=== PATIENT | female | born 1965 | race Caucasian/White ===

== ENCOUNTER 2022-05-17 12:36 | Emergency (ER) | payer BC, SELFPAY ==
--- NOTE | 2022-05-17 12:36 | ECG_ITS ---
APPROVED REPORT Exam: Resting ECG HR:102 bpm ECG Measurements Heart Rate 102 AXES MO 132 P 68 QRSd 86 QRS 68 QT 362 T 64 QTc 420 Conclusion SINUS TACHYCARDIA POSSIBLE RIGHT ATRIAL ENLARGEMENT [0.25mV P-WAVE] ST DEVIATION AND MODERATE T-WAVE ABNORMALITY, CONSIDER ANTERIOR ISCHEMIA [-0.1+ mV T-WAVE IN V3/V4] ABNORMAL ECG UNCONFIRMED REPORT Electronically signed by : Aguilar Lorenzo MD 05/17/2022 21:39:46
[2022-05-17 12:39] VITALS: BP 137/69; PULSE 89; RESP 19; TEMP 36.9; O2SAT 99; BMI 25.8
[2022-05-17 12:55] VITALS: PULSE 89
--- NOTE | 2022-05-17 12:57 | XR_ITS ---
FINAL REPORT CLINICAL HISTORY: Chest Pain FINDINGS: PA and lateral views of the chest are obtained. There is no prior exam for comparison. The cardiac and mediastinal silhouettes are within normal limits. The lungs are clear. There is no pleural effusion, pneumothorax, or acute osseous abnormality. IMPRESSION: No radiographic evidence of acute cardiac or pulmonary disease. Reviewed, Interpreted and Dictated by Allyssa Colindres MD Transcribed by Gregor Boyd Authenticated and [facility]
[2022-05-17 13:00] VITALS: BP 136/77; PULSE 96; RESP 20; O2SAT 95
[2022-05-17 13:11] LABS: Chloride 102 mmol/L (98-107); Potassium 3.9 mmoL/L (3.5-5.1); Sodium 139 mmol/L (136-145)
[2022-05-17 13:12] LABS: Basophils # 0.1 K/mm3 (0-0.2); Basophils % 1.1 % (0.1-2.0); Eosinophils # 0.1 K/mm3 (0.0-0.4); Hematocrit 43.6 % (37.0-47.0); Hemoglobin 14.3 g/dL (12.2-16.2); Lymphocytes # 1.2 K/mm3 (0.7-4.5); Lymphocytes % 17.9 % (10-50); Mean Corpuscular HGB Conc 32.7 g/dL (31.8-35.4); Mean Corpuscular Hemoglobin 28.6 pg (27.0-31.2); Mean Corpuscular Volume 87.4 fl (81-99); Mean Platelet Volume 9.3 fl (7.4-10.4); Monocytes # 0.3 K/mm3 (0.1-1.0); Monocytes % 5.2 % (1.7-9.3); Neutrophils # 4.9 K/mm3 (1.8-7.8); Neutrophils % 74.8 % (37.0-80.0); Platelet Count 224 K/mm3 (142-424); Red Blood Count 4.99 M/mm3 (4.20-5.40); White Blood Count 6.5 K/mm3 (4.8-10.8)
--- NOTE | 2022-05-17 13:12 | [facility].EDCP ---
Discharge Plan Disposition Patient Disposition: Home, Self-Care Prescriptions Prescriptions: New bisoprolol fumarate 5 mg tablet 5 mg PO DAILY Qty: 30 0RF isosorbide mononitrate 30 mg tablet extended release 24 hr 30 mg PO DAILY Qty: 30 0RF No Action omeprazole 40 mg Capsule,Delayed Release(Dr/Ec) 40 mg PO DAILY dextroamphetamine-amphetamine [Adderall] 5 mg Tablet 2.5 mg PO DAILY dimethyl fumarate [Tecfidera] 240 mg Capsule,Delayed Release(Dr/Ec) 240 mg PO BID Clinical Impressions Clinical Impression: Chest pain Instructions Patient Instructions: DI for Chest Pain Discharge ED Provider: Chetan Kong Chest Pain HPI General Chief Complaint: Chest Pain Stated Complaint: chest pain Time Seen by Provider: 05/17/22 13:12 Mode of Arrival: Ambulatory Source of Information: Patient and Medical Record Limitations: No Limitations Description of Symptoms (Recalled from ER Triage Doc. by RN): Patient reports x2 days of mid sternal chest pressure. Denies sharp pain, shortness of air, fever or chills. History of Present Illness HPI narrative: pt with episode of chest pain last pm and this am - pt with no pain at this time - pt has no known hx of cad or diabetes MD complaint: chest pain indicative of cardiac Onset (ago): hour(s) Duration: now resolved Activity at onset: during rest Pain location: substernal Severity: moderate Quality: tightness Pain radiation: neck Risk Factors for CAD: Family Hx of CAD Treatments prior to or on arrival for Cardiac Chest Pain: none RAZA Score for Non-Stemi Age of Patient: 50-59 years old Heart Rate: 90-109 bpm Systolic Blood Pressure: 100-119 mmHg Serum Creatinine: 0.80-1.19 mg/dl CHF [place] Class: I-No CHF Other Risk Factors: None Non-Stemi Risk Score: 106 Risk Stratification: 1-108 = Low Risk Related Data On Oral Contraceptives: No Home Medications Medication Instructions Recorded Confirmed dextroamphetamine-amphetamine 5 mg 2.5 mg PO DAILY Anxiety 05/17/22 05/17/22 tablet (Adderall) dimethyl fumarate 240 mg 240 mg PO BID Supplement 05/17/22 05/17/22 capsule,delayed release (Tecfidera) omeprazole 40 mg capsule,delayed 40 mg PO DAILY GERD 05/17/22 05/17/22 release Previous Rx's Medication Instructions Recorded bisoprolol fumarate 5 mg tablet 5 mg PO DAILY #30 tabs 05/17/22 isosorbide mononitrate 30 mg 30 mg PO DAILY #30 tabs 05/17/22 tablet,extended release 24 hr Allergies Allergy/AdvReac Type Severity Reaction Status Date / Time Sulfa (Sulfonamide Allergy Intermediate Rash Verified 05/17/22 13:11 Antibiotics) [facility] Disclaimer: The information contained in this section may have been updated after the patient was seen, as this information can be updated by other users. Medical History (Updated 05/17/22 @ 14:34 by Chetan Kong MD) ADHD Anxiety and depression GERD without esophagitis Multiple sclerosis Surgical History History of hysterectomy Social History (Updated 05/17/22 @ 13:09 by Paresh Mayers, RN) Smoking Status: Never smoker alcohol intake: never current occupational status: employed Travel in the last 8 weeks: None ROS Obtained: Yes All systems reviewed & no additional complaints except as documented Physical Exam General General appearance: alert Head Head exam: normocephalic Eye Eye exam: Present PERRL and EOMI ENT ENT exam: Present mucous membranes moist Neck Neck exam: Present trachea midline Respiratory Respiratory exam: Present normal lung sounds bilaterally; Absent respiratory distress Cardiovascular Cardiovascular exam: Present regular rate; Absent systolic murmur Abdominal Exam Abdominal exam: Present soft Extremities Exam Extremities exam: Present full ROM Neurological Exam Neurological exam: Present alert, oriented X3 and CN II-XII intact; Absent motor sensory deficit Psychiatric Psychiatric
[2022-05-17 13:16] LABS: Anion Gap 10.9 mEq/L (5-15); Blood Urea Nitrogen 14 mg/dl (7-17); Calcium 9.2 mg/dl (8.4-10.2); Carbon Dioxide 30 mmol/L (22.0-30.0); Creatinine Clearance Estimated 92 mL/min (50-200); Estimated Glomerular Filt Rate 74 ml/min (>60); GFR (African American) 89 ML/MIN (>60); Glucose 162 mg/dl (74-100)
[2022-05-17 13:19] LABS: Prothrombin Time 10.8 seconds (10.1-12.5)
[2022-05-17 13:30] VITALS: BP 110/72; PULSE 90; RESP 18; O2SAT 95
[2022-05-17 13:32] LABS: Troponin I < 0.01 ng/ml (0.00-0.034)
[2022-05-17 13:49] VITALS: BP 110/72; PULSE 90; RESP 16; TEMP 36.7; O2SAT 95
[2022-05-17 15:27] LABS: Hemoglobin A1C 5.8 % (4.0-6.0)
== END 2022-05-17 13:49 | disposition home or self-care (01) ==
PROVIDERS: Emergency Provider Emergency Medicine
DX: R07.89 Other chest pain (principal); F90.9 Attention-deficit hyperactivity disorder, unspecified type; F41.9 Anxiety disorder, unspecified; K21.9 Gastro-esophageal reflux disease without esophagitis; G35 Multiple sclerosis; Z90.710 Acquired absence of both cervix and uterus
CPT/HCPCS: 71046; 80048; 83036; 84484; 85025; 85610; 85730; 93005; 99285